=== PATIENT | female | born 2000 | race Caucasian/White ===

== ENCOUNTER 2022-11-28 06:36 | Emergency (ER) | payer OTHER, SELFPAY ==
[2022-11-28 06:43] VITALS: BP 147/81; PULSE 94; RESP 16; TEMP 36.7; O2SAT 100; BMI 27.3
--- NOTE | 2022-11-28 07:27 | ED.BACK1 ---
HPI - Back Pain/Injury General Chief Complaint: Back Pain/Injury Stated Complaint: back pain Time Seen by Provider: 11/28/22 07:03 Source: patient Mode of arrival: walk-in Limitations: no limitations History of Present Illness HPI Narrative: The patient is coming to the ER with lower back pain that started after 1 day history of frequency of urination, there was no fever or chills but the patient mentioned that the pain radiating down to her groin area, the patient also mentioned that she had 1 episode of diarrhea No nausea or vomiting she actually had a continuous pain since last night and the last meal she had was burger with some alcohol The patient denies any other complaints Related Data Home Medications Medication Instructions Recorded Confirmed control PO DAILY 11/28/22 escitalopram oxalate 10 mg tablet 10 mg PO DAILY 11/28/22 11/28/22 (Lexapro) visteral 25 mg PO TID 11/28/22 11/28/22 Previous Rx's Medication Instructions Recorded ciprofloxacin HCl 500 mg tablet 500 mg PO Q12H #14 tabs 11/28/22 diclofenac sodium 50 mg 50 mg PO Q12H PRN pain #14 tabs 11/28/22 tablet,delayed release Allergies Allergy/AdvReac Type Severity Reaction Status Date / Time No Known Drug Allergies Allergy Verified 11/28/22 06:48 Review of Systems ROS Status of ROS 10 or more systems reviewed and unremarkable except as noted in history and below PFSH PFS Social History Smoking status: Current every day smoker Exam Narrative Exam Narrative: Nurses notes and vital signs reviewed and patient is not hypoxic. General: Well-appearing and in no apparent distress. Skin: Warm, dry, no pallor noted. No rash. Head: Normocephalic, atraumatic. Neck: Supple, non-tender. Eye: Pupils are equal, round and EOMI. No scleral icterus. Ears, Nose, Mouth, and Throat: TM are clear, no nasal mucosal hypertrophy. Oral mucosa is moist, no posterior oropharynx erythema, uvula is mid-line Cardiovascular: Regular Rate and Rhythm without murmur, gallop or rub. Respiratory: No accessory muscle use or respiratory distress. Lungs are clear to auscultation, no wheezing, rales or rhonchi Chest Wall: no tenderness Back: No midline thoracic or lumbar vertebral tenderness. right flank pain Musculoskeletal: normal ROM, no calf or popliteal tenderness, no lower extremity edema/swelling GI: Abdomen is soft, non-distended. Normal bowel sounds. No masses appreciated. No tenderness to palpation. No rebound, guarding, or rigidity noted. Neurological: A&O x4. No cranial nerve dysfunction observed. No truncal ataxia. Moves all extremities. Sensation intact. Psychiatric: Cooperative and interactive. Normal mood and affect. Constitutional Vital Signs, click to edit/add: Last Vital Signs Temp 98.1 F 11/28/22 06:43 Pulse 94 H 11/28/22 06:43 Resp 16 11/28/22 06:43 BP 147/81 H 11/28/22 06:43 Pulse Ox 100 11/28/22 06:43 O2 Del Method Room Air 11/28/22 06:43 Course Vital Signs Vital signs: Vital Signs Temperature 98.1 F 11/28/22 06:43 Pulse Rate 94 H 11/28/22 06:43 Respiratory Rate 16 11/28/22 06:43 Blood Pressure 147/81 H 11/28/22 06:43 Pulse Oximetry 100 11/28/22 06:43 Oxygen Delivery Method Room Air 11/28/22 06:43 Temperature 98.1 F 11/28/22 06:43 Pulse Rate 94 H 11/28/22 06:43 Respiratory Rate 16 11/28/22 06:43 Blood Pressure 147/81 H 11/28/22 06:43 Pulse Oximetry 100 11/28/22 06:43 Oxygen Delivery Method Room Air 11/28/22 06:43 MDM - Back Pain/Injury MDM Narrative Medical decision making narrative: The patient had some mild leukocytosis on the blood work-up but otherwise her chemistry was within normal she was feeling much better after initial treatment in the ER and her CAT scan showed no significant pathology except for a possibility of a kidney stone that passed Urine is positive for UTI and multiple RBCs which can correlate with possible urine infection as well The patient right now does not have any complain she was discharged home with ciprofloxacin as well as Voltaren with instruction to come back in case of any fever chills or any other complaint The patient is to follow up with primary care physician in next 2-3 days or to return to the emergency department should any of the signs or symptoms worsen or new symptoms develop. The patient agrees with the following Diagnosis and Treatment plan and the patient will be discharged home. Lab Data Labs: Lab Results 11/28/22 Range/Units 07:26 WBC 13.9 H (4.0-11.0) 10^3/uL RBC 4.08 L (4.20-5.40) 10^6/uL Hgb 13.5 (12.0-16.0) g/dL Hct 39.5 (36.0-48.0) % MCV 96.8 (81.0-99.0) fL MCH 33.1 (26.7-34.0) pg MCHC 34.2 (29.9-35.2) g/dL RDW 12.3 (11.0-15.0) % Plt Count 287 (150-450) 10^3/uL MPV 8.5 L (9.5-13.5) fL Neut % (Auto) 74.4 (43.0-75.0) % Lymph % (Auto) 17.4 L (20.5-60.0) % [place] % (Auto) 7.3 (1.7-12.0) % Eos % (Auto) 0.2 L (0.9-7.0) % Baso % (Auto) 0.4 (0.2-2.0) % Neut # (Auto) 10.4 H (1.4-6.5) 10^3/uL Lymph # (Auto) 2.4 (1.2-3.8) 10^3/uL [place] # (Auto) 1.0 H (0.3-0.8) 10^3/uL Eos # (Auto) 0.0 (0.0-0.7) 10^3/uL Baso # (Auto) 0.1 (0.0-0.1) 10^3/uL Abs Immat Gran (auto) 0.04 H (0.00-0.03) 10^3/uL Imm/Tot Granulo (auto) 0.3 (0.0-0.5) % Sodium 140 (136-145) mmol/L Potassium 3.6 (3.5-5.1) mmol/L Chloride 101 (98-107) mmol/L Carbon Dioxide 28.3 (21.0-32.0) mmol/L Anion Gap 14.3 BUN 11.0 (7.0-18.0) mg/dL Creatinine 0.71 (0.55-1.02) mg/dL Est GFR ( Amer) >60 (>=60) Est GFR (Non-Af Amer) >60 (>=60) BUN/Creatinine Ratio 15.5 Glucose 103 (74-106) mg/dL Calcium 9.5 (8.5-10.1) mg/dL Total Bilirubin 0.5 (0.2-1.0) mg/dL AST 10 L (15-37) U/L ALT 12 L (14-59) U/L Alkaline Phosphatase 103 (46-116) U/L Total Protein 8.2 (6.4-8.2) g/dL Albumin 4.2 (3.4-5.0) g/dL Globulin 4.0 g/dL Albumin/Globulin Ratio 1.0 Lipase Cancelled Serum HCG, Qual Negative (NEGATIVE) Urine Color Lt. yellow (YELLOW) Urine Clarity Clear (CLEAR) Urine pH 7.0 (5.0-9.0) Ur Specific [place] 1.020 (1.005-1.025) Urine Protein 100 A (NEG/TRACE) mg/dL Urine Glucose (UA) Negative (NEGATIVE) mg/dL Urine Ketones Negative (NEGATIVE) mg/dL Urine Occult Blood Large A (NEGATIVE) Urine Nitrite Positive A (NEGATIVE) Urine Bilirubin Negative (NEGATIVE) Urine Urobilinogen 0.2 (0.2-1.0) EU/dL Ur Leukocyte Esterase Moderate A (NEGATIVE) Urine RBC >100 A (0-2) #/HPF Urine WBC 5-10 A (NONE SEEN) #/HPF Ur Squamous Epith Cells Rare (NONE/RARE) #/LPF Ur Renal Epithelial Cell Rare A (NONE SEEN) #/LPF Urine Crystals None seen (None Seen) #/HPF Urine Bacteria Trace A (NONE SEEN) #/HPF Urine Casts None seen (NONE SEEN) #/LPF Urine Mucus None seen (NONE SEEN) Ur Culture Indicated? Yes Ethanol Quant 46 mg/dL Discharge Plan Discharge Chief Complaint: Back Pain/Injury Clinical Impression: Acute flank pain, UTI (urinary tract infection) Patient Disposition: Home, Self-Care Time of Disposition Decision: 11:37 Condition: Good Prescriptions / Home Meds: New ciprofloxacin HCl 500 mg tablet 500 mg PO Q12H Qty: 14 0RF diclofenac sodium 50 mg tablet,delayed release (DR/EC) 50 mg PO Q12H PRN (Reason: pain) Qty: 14 0RF No Action visteral 25 mg PO TID escitalopram oxalate [Lexapro] 10 mg tablet 10 mg PO DAILY control PO DAILY Instructions: Urinary Tract Infection in Women (ED) Stand Alone Forms: Portal Instructions Referrals: Physician,Non-Staff, MD [Primary Care Provider] - 1 week Discharge Date/Time: 11/28/22 11:57
[2022-11-28] MEDS: 0.9 % SODIUM CHLORIDE 1,000 ML 1000 ML IV (07:32)
[2022-11-28] MEDS: KETOROLAC TROMETHAMINE 30 MG/ML VIAL 15 MG IVP (07:33)
[2022-11-28 07:43] LABS: Basophils Absolute Auto 0.1 10^3/uL (0.0-0.1); Basophils Percent Auto 0.4 % (0.2-2.0); Bilirubin Urine NEGATIVE (NEGATIVE); Blood Urine LARGE (NEGATIVE); Clarity Urine CLEAR (CLEAR); Color Urine LT. YELLOW (YELLOW); Eosinophils Percent Auto 0.2 % (0.9-7.0); Glucose Urine UA NEGATIVE (NEGATIVE); Hematocrit 39.5 % (36.0-48.0); Hemoglobin 13.5 g/dL (12.0-16.0); Immature Granulocytes Abs Auto 0.04 10^3/uL (0.00-0.03); Immature Granulocytes Pct Auto 0.3 % (0.0-0.5); Ketones Urine NEGATIVE (NEGATIVE); Leukocyte Esterase Urine MODERATE (NEGATIVE); Lymphocytes Absolute Auto 2.4 10^3/uL (1.2-3.8); Lymphocytes Percent Auto 17.4 % (20.5-60.0); Mean Corpuscular HGB Conc 34.2 g/dL (29.9-35.2); Mean Corpuscular Hemoglobin 33.1 pg (26.7-34.0); Mean Corpuscular Volume 96.8 fL (81.0-99.0); Mean Platelet Volume 8.5 fL (9.5-13.5); Monocytes Percent Auto 7.3 % (1.7-12.0); Neutrophils Absolute Auto 10.4 10^3/uL (1.4-6.5); Neutrophils Percent Auto 74.4 % (43.0-75.0); Nitrite Urine POSITIVE (NEGATIVE); Platelet Count 287 10^3/uL (150-450); Protein Urine 100 mg/dL (NEG/TRACE); Red Blood Count 4.08 10^6/uL (4.20-5.40); Red Cell Distribution Width 12.3 % (11.0-15.0); Urobilinogen Urine 0.2 EU/dL (0.2-1.0); White Blood Count 13.9 10^3/uL (4.0-11.0)
[2022-11-28 07:55] LABS: Urine Microscopic Indicated YES
[2022-11-28 07:56] LABS: HCG Qualitative NEGATIVE (NEGATIVE)
[2022-11-28 07:57] LABS: Alanine Aminotransferase 12 U/L (14-59); Albumin Level 4.2 g/dL (3.4-5.0); Alkaline Phosphatase 103 U/L (46-116); Anion Gap 14.3; Aspartate Amino Transferase 10 U/L (15-37); BUN Creatinine Ratio 15.5; Bilirubin Total 0.5 mg/dL (0.2-1.0); Calcium 9.5 mg/dL (8.5-10.1); Carbon Dioxide 28.3 mmol/L (21.0-32.0); Chloride 101 mmol/L (98-107); Estimated GFR (African America >60 (>=60); Estimated GFR (Non-African Ame >60 (>=60); Glucose 103 mg/dL (74-106); Potassium 3.6 mmol/L (3.5-5.1); Sodium 140 mmol/L (136-145); Total Protein 8.2 g/dL (6.4-8.2)
[2022-11-28 08:00] LABS: Bacteria Urine TRACE #/HPF (NONE SEEN); Cast Seen? NONE SEEN #/LPF (NONE SEEN); Crystals Seen? None Seen #/HPF (None Seen); Ethanol 46 mg/dL; Mucus Urine NONE SEEN (NONE SEEN); RBC Urine >100 #/HPF (0-2); Renal Epithelial Cells Urine RARE #/LPF (NONE SEEN); Squamous Epithelial Cell Urine RARE #/LPF (NONE/RARE); Urine Culture Indicated YES
--- NOTE | 2022-11-28 08:38 | CT_ITS ---
The [address] [address] Patient Name: NICOLE LIMA MRN: [id number] date: 2000 Sex: F Assigned Patient Location: ER Current Patient Location: ER Accession/Order Number: [id number] Exam Date: 11/28/2022 10:00 Report Date: 11/28/2022 11:20 At the request of: ELI STONE Procedure: CT abdomen pelvis wo con EXAM: CT abdomen pelvis wo con HISTORY: right flank pain COMPARISON: CT abdomen pelvis 02/22/2021 TECHNIQUE: CT was obtained through the abdomen and pelvis without contrast Dose reduction techniques were achieved by using automated exposure control and/or adjustment of mA and/or kV according to patient size and/or use of iterative reconstruction technique. FINDINGS: Lung bases: Trace amount of pericardial fluid is present. No pleural effusion. Cardiac size is normal. Liver: Normal. No intrahepatic or extrahepatic biliary ductal dilation. Gallbladder: Normal. Pancreas: Normal. Spleen: Normal. Adrenal glands: Normal. Kidneys/Ureters: There is small amount of fluid and stranding about the right kidney lower pole and proximal ureter. No hydronephrosis. No renal or distal ureteral calculi. Bladder: Normal. Gastrointestinal: The bowel is not obstructed. No bowel wall thickening or surrounding inflammation. The appendix is normal. Reproductive: Uterus and ovaries are unremarkable. Vascular: The aorta is normal in caliber. Lymph nodes: No lymphadenopathy. Osseous: No acute fracture. No aggressive osseous lesion. CT/CT abdomen pelvis wo con IMPRESSION: 1. Small amount of fluid and stranding about the right kidney lower pole and proximal ureter. This may be secondary to a recently passed stone; alternatively, consider correlation with urinalysis for evidence of infection. 2. No hydronephrosis, renal lithiasis, distal ureteral calculi. 3. Normal appendix. Electronically authenticated by: ALCIDES ACOSTA Date: 11/28/2022 11:20
== END 2022-11-28 11:57 | disposition home or self-care (01) ==
PROVIDERS: Emergency Provider Emergency Medicine
DX: N39.0 Urinary tract infection, site not specified (principal); R10.9 Unspecified abdominal pain; Z79.899 Other long term (current) drug therapy; Z79.3 Long term (current) use of hormonal contraceptives; F17.210 Nicotine dependence, cigarettes, uncomplicated
CPT/HCPCS: 36415; 74176; 80053; 80320; 81001; 83690; 84703; 85025; 87086; 87150; 87186; 96361; 96374; 99285